=== PATIENT | female | born 1990 | race Caucasian/White ===

== ENCOUNTER 2021-03-29 11:06 | Inpatient (IN) | payer OTHER ==
[2021-03-29 12:01] VITALS: BMI 25.4
[2021-03-29] MEDS ORDERED: NICOTINE POLACRILEX 2 MG GUM BUC PRN (13:19)
[2021-03-29] MEDS ORDERED: diazePAM 5 MG TABLET PO PRN (13:19)
[2021-03-29] MEDS ORDERED: BISMUTH SUBSALICYLATE 524 MG/30 ML PO PRN (13:19)
[2021-03-29] MEDS ORDERED: IBUPROFEN 400 MG TABLET (FP) PO PRN (13:19)
[2021-03-29] MEDS ORDERED: MAGNESIUM HYDROX 2400MG/30ML ORAL SUSPENSION 30 ML CUP PO PRN (13:19)
[2021-03-29] MEDS ORDERED: ONDANSETRON *ODT* 4 MG TABLET SL PRN (13:19)
[2021-03-29] MEDS ORDERED: cloNIDine HCL 0.1 MG TABLET PO PRN (13:19)
[2021-03-29] MEDS ORDERED: diazePAM 5 MG TABLET PO ONE (13:19)
[2021-03-29] MEDS ORDERED: MAG HYDROX/AL HYDROX/SIMETH 30 ML UNIT-DOSE CUP PO PRN (13:19)
[2021-03-29] MEDS ORDERED: methaDONE HCL 10 MG TABLET (FOR DETOX USE ONLY) PO ONE (13:19)
[2021-03-29] MEDS ORDERED: ACETAMINOPHEN 325 MG TABLET (FP) PO PRN ×2 (13:19)
[2021-03-29] MEDS ORDERED: MAGNESIUM CITRATE 300 ML BOTTLE PO PRN (13:19)
[2021-03-29] MEDS ORDERED: MENTHOL/PHENOL 1 EACH UD MM PRN (13:19)
[2021-03-29] MEDS: diazePAM 5 MG TABLET PO SCH ×2 (17:35→22:40)
[2021-03-29] MEDS: THIAMINE HCL 100 MG TABLET (FP) PO SCH (22:40)
[2021-03-29] MEDS: MELATONIN 5 MG TABLETS PO SCH (22:40)
[2021-03-30] MEDS: diazePAM 5 MG TABLET PO SCH ×4 (06:12→22:42)
[2021-03-30] MEDS: ALBUTEROL SO4 HFA INHALER IH PRN (06:37)
[2021-03-30] MEDS ORDERED: methaDONE HCL 10 MG TABLET (FOR DETOX USE ONLY) ONE (09:55)
[2021-03-30] MEDS: PRENATAL VITAMINS W/ FOLIC ACID TABLET (FP) PO SCH (11:07)
[2021-03-30 14:57] LABS: HEMATOCRIT 41.7 % (32.4-45.2); HEMOGLOBIN 13.9 GM/dL (10.7-15.3); MCH 30.8 pg (25.7-33.7); MCHC 33.3 g/dl (32.0-36.0); MEAN CELL VOLUME 92.4 fl (80-96); PLATELET COUNT 267 10^3/uL (134-434); RBC 4.51 M/mm3 (3.60-5.2); RDW 13.8 % (11.6-15.6); WHITE BLOOD COUNT 5.6 K/mm3 (4.0-10.0)
[2021-03-30 15:09] LABS: ALBUMIN 3.6 g/dl (3.4-5.0); BLOOD UREA NITROGEN 13.2 mg/dL (7-18)
[2021-03-30 15:13] LABS: BILIRUBIN,TOTAL 0.6 mg/dL (0.2-1)
[2021-03-30 15:14] LABS: TOT PROT 6.9 g/dl (6.4-8.2)
[2021-03-30] MEDS: diazePAM 5 MG TABLET PO ONE (22:21)
[2021-03-30] MEDS: MELATONIN 5 MG TABLETS PO SCH (22:22)
[2021-03-30] MEDS: THIAMINE HCL 100 MG TABLET (FP) PO SCH (22:22)
[2021-03-31] MEDS: diazePAM 5 MG TABLET PO SCH ×3 (06:14→22:15)
[2021-03-31] MEDS: ALBUTEROL SO4 HFA INHALER IH PRN (06:24)
[2021-03-31] MEDS ORDERED: methaDONE HCL 10 MG TABLET (FOR DETOX USE ONLY) PO ONE (10:00)
[2021-03-31] MEDS: PRENATAL VITAMINS W/ FOLIC ACID TABLET (FP) PO SCH (10:07)
[2021-03-31] MEDS: THIAMINE HCL 100 MG TABLET (FP) PO SCH (22:14)
[2021-03-31] MEDS: MELATONIN 5 MG TABLETS PO SCH (22:15)
[2021-04-01] MEDS: diazePAM 5 MG TABLET PO SCH ×2 (06:27→17:45)
[2021-04-01] MEDS ORDERED: methaDONE HCL 10 MG TABLET (FOR DETOX USE ONLY) ONE (09:20)
[2021-04-01] MEDS: PRENATAL VITAMINS W/ FOLIC ACID TABLET (FP) PO SCH (10:23)
[2021-04-01] MEDS: MELATONIN 5 MG TABLETS PO SCH (22:17)
[2021-04-01] MEDS: METHOCARBAMOL 500 MG TABLET PO PRN (22:38)
[2021-04-01] MEDS: THIAMINE HCL 100 MG TABLET (FP) PO SCH (22:46)
[2021-04-02] MEDS: diazePAM 5 MG TABLET PO ONE (06:44)
[2021-04-02] MEDS: METHOCARBAMOL 500 MG TABLET PO PRN (09:13)
[2021-04-02] MEDS: PRENATAL VITAMINS W/ FOLIC ACID TABLET (FP) PO SCH (09:15)
[2021-04-02 09:25] VITALS: BP 112/72; PULSE 99; TEMP 98.4
[2021-04-02] MEDS ORDERED: methaDONE HCL 10 MG TABLET (FOR DETOX USE ONLY) PO ONE (10:00)
== END 2021-04-02 12:39 | disposition home or self-care (01) | DRG 773 ==
LOC: YASAS 11:06 → Y6N 13:21
PROVIDERS: ADMIT Allergy & Immunology; ATTEND Allergy & Immunology
PROC: HZ2ZZZZ Detoxification Services for Substance Abuse Treatment (ICD-10-PCS; principal; 2021-03-29)
DX: F11.23 Opioid dependence with withdrawal (principal); F13.230 Sedative, hypnotic or anxiolytic dependence with withdrawal, uncomplicated; F14.10 Cocaine abuse, uncomplicated; F12.10 Cannabis abuse, uncomplicated; F17.210 Nicotine dependence, cigarettes, uncomplicated
CPT/HCPCS: 36415; 80053; 81025; 85027; 86780; 93005; 93010; C9803; Q0162; U0003; U0005